=== PATIENT | female | born 1940 | race Hispanic/Latino ===

== ENCOUNTER 2023-07-27 16:35 | Inpatient (IN) | payer MEDICARE ==
[~2023-07-27] VITALS: Ht 154.9 cm; Wt 94.0 kg
[~2023-07-27 16:35] MED LIST: ALBU5SOL19 IH; APIX5TAB PO; ASPI-1005 PO; CETI-193 PO; FLUT110HFA IH; FLUT15.845 NS; METO-391 PO; OMEP20CA12 PO; POTA-200 PO; TORS20TA4 PO; [UNRECOGNIZED DRUG - CODE] PO
[2023-07-27 17:27] LABS: BASOPHILS # (AUTO) 0.04 K/uL (0.00-0.20); BASOPHILS % (AUTO) 0.5 % (0.0-5.0); EOSINOPHILS # (AUTO) 0.03 K/uL (0.00-0.70); EOSINOPHILS % (AUTO) 0.4 % (0.0-8.0); HEMATOCRIT 35.3 % (36-48); IMMATURE GRANULOCYTE ABSOLUTE 0.03 K/uL (0-1); LYMPHOCYTES # (AUTO) 1.1 K/uL (1.0-4.8); LYMPHOCYTES % (AUTO) 14.2 % (21.0-51.0); MEAN CORPUSCULAR HEMOGLOBIN 27.7 pg (27.0-33.0); MEAN CORPUSCULAR HGB CONC 31.4 g/dL (32.0-36.0); MONOCYTES # (AUTO) 0.9 K/uL (0.1-1.0); MONOCYTES % (AUTO) 11.7 % (3.0-13.0); NEUTROPHILS # (AUTO) 5.4 K/uL (1.8-7.7); NEUTROPHILS % (AUTO) 72.8 % (40.0-77.0); PLATELET COUNT (AUTO) 192 K/uL (130-400); RED BLOOD CELL COUNT(AUTO) 4.01 MIL/uL (4.00-5.50); RED CELL DISTRIBUTION WIDTH 14.1 % (11.0-15.5); WHITE BLOOD COUNT (AUTO) 7.4 K/uL (4.8-10.8)
[2023-07-27] MEDS: ASPIRIN 81MG CHEW TAB PO ONE (17:29)
[2023-07-27] MEDS: DILTIAZEM 25MG INJ IVP ONE ×2 (17:30→19:53)
[2023-07-27 17:37] LABS: CREATININE 1.2 mg/dL (0.5-1.0); POTASSIUM 3.4 mmol/L (3.5-5.1)
[2023-07-27 17:39] LABS: INR 1.03 (0.85-1.15); PROTHROMBIN TIME 12.1 SEC (9.6-11.6)
[2023-07-27 17:40] LABS: PARTIAL THROMBOPLASTIN TIME 33.9 SEC (26.3-35.5)
[2023-07-27 17:42] LABS: ALBUMIN 3.4 g/dL (3.5-5.0); BILIRUBIN,TOTAL 0.7 mg/dL (0.2-1.0); MAGNESIUM 1.8 mg/dL (1.80-2.40); TOTAL PROTEIN, SERUM 7.3 g/dL (6.0-8.3)
[2023-07-27 17:48] LABS: B-TYPE NATRIURETIC PEPTIDE 492 pg/mL (0-100)
[2023-07-27] MEDS: POTASSIUM BICARB/CIT AC 25 MEQ TABLET.EFF PO ONE (19:46)
[2023-07-27] MEDS: PANTOPRAZOLE 40 MG/VIAL IVP ONE (19:53)
[2023-07-27] MEDS ORDERED: METOPROLOL TARTRATE 25 MG TAB PO SCH (22:30)
[2023-07-27] MEDS: METOPROLOL TARTRATE 25 MG TAB PO SCH (23:01)
[2023-07-28] VITALS (8 sets, daily range): BP systolic 110–137; BP diastolic 58–83; PULSE 80–102; RESP 18–19; O2SAT 97–99
[2023-07-28] MEDS: ACETAMINOPHEN 325 MG TAB PO PRN (03:22)
[2023-07-28] MEDS ORDERED: ONDANSETRON 4MG INJ IVP PRN (03:30)
[2023-07-28] MEDS: MORPHINE 2 MG SYG IVP PRN (04:34)
[2023-07-28 05:49] LABS: BASOPHILS # (AUTO) 0.03 K/uL (0.00-0.20); BASOPHILS % (AUTO) 0.5 % (0.0-5.0); EOSINOPHILS # (AUTO) 0.09 K/uL (0.00-0.70); EOSINOPHILS % (AUTO) 1.4 % (0.0-8.0); HEMATOCRIT 30.2 % (36-48); IMMATURE GRANULOCYTE ABSOLUTE 0.02 K/uL (0-1); LYMPHOCYTES # (AUTO) 1.7 K/uL (1.0-4.8); LYMPHOCYTES % (AUTO) 26.5 % (21.0-51.0); MEAN CORPUSCULAR HEMOGLOBIN 27.4 pg (27.0-33.0); MEAN CORPUSCULAR HGB CONC 31.8 g/dL (32.0-36.0); MEAN CORPUSCULAR VOLUME 86.3 fL (79-99); MONOCYTES # (AUTO) 0.9 K/uL (0.1-1.0); MONOCYTES % (AUTO) 14.1 % (3.0-13.0); NEUTROPHILS # (AUTO) 3.6 K/uL (1.8-7.7); NEUTROPHILS % (AUTO) 57.2 % (40.0-77.0); PLATELET COUNT (AUTO) 161 K/uL (130-400); RED CELL DISTRIBUTION WIDTH 14.4 % (11.0-15.5); WHITE BLOOD COUNT (AUTO) 6.3 K/uL (4.8-10.8)
[2023-07-28 06:01] LABS: ALBUMIN 2.9 g/dL (3.5-5.0); BILIRUBIN,TOTAL 0.6 mg/dL (0.2-1.0); CREATININE 1.1 mg/dL (0.5-1.0); POTASSIUM 3.3 mmol/L (3.5-5.1); TOTAL PROTEIN, SERUM 6.5 g/dL (6.0-8.3)
[2023-07-28 06:33] LABS: B-TYPE NATRIURETIC PEPTIDE 382 pg/mL (0-100)
[2023-07-28] MEDS: POTASSIUM CHLORIDE 10% ELIXIR 20 MEQ/15 ML UDCUP PO PRN (06:33)
[2023-07-28] MEDS: TORSEMIDE 20 MG TAB PO SCH (09:14)
[2023-07-28] MEDS: FAMOTIDINE 20MG TAB PO SCH (09:14)
[2023-07-28] MEDS: APIXABAN 5 MG TABLET PO SCH (09:14)
[2023-07-28] MEDS: ASPIRIN 81 MG EC TAB PO SCH (09:14)
[2023-07-28] MEDS ORDERED: PROP15DR OU (12:12)
[2023-07-28] MEDS ORDERED: DILT120T PO (12:12)
[2023-07-28] MEDS ORDERED: ERGO500093 PO (12:12)
[2023-07-28] MEDS: FLUTICASONE PROPIONATE 110 MCG IH SCH (13:00)
[2023-07-28] MEDS: KCL 20 MEQ ERTAB PO PRN (15:28)
[2023-07-28] MEDS: DILTIAZEM 60MG TAB PO SCH (20:38)
[2023-07-28] MEDS ORDERED: DILTIAZEM 60MG TAB PO SCH (21:00)
[2023-07-29] VITALS (9 sets, daily range): BP systolic 125–155; BP diastolic 59–93; PULSE 88–118; RESP 16–19; O2SAT 97–98
[2023-07-29] MEDS: REGADENOSON 0.4 MG/5 ML PF SYG IVP SCH (06:30)
[2023-07-29] MEDS ORDERED: ATOR20TA65 PO (11:13)
[2023-07-29] MEDS: ACETAMINOPHEN 325 MG TAB PO PRN (12:22)
[2023-07-29] MEDS: TORSEMIDE 20 MG TAB PO ONE (14:31)
[2023-07-29] MEDS: DILTIAZEM 120MG SR CAP PO SCH (20:04)
[2023-07-29] MEDS: ATORVASTATIN 20 MG TABLET PO SCH (20:04)
[2023-07-30 03:45] LABS: HEMATOCRIT 34.6 % (36-48); MEAN CORPUSCULAR HGB CONC 31.8 g/dL (32.0-36.0); RED BLOOD CELL COUNT(AUTO) 3.93 MIL/uL (4.00-5.50); RED CELL DISTRIBUTION WIDTH 14.1 % (11.0-15.5); WHITE BLOOD COUNT (AUTO) 6.6 K/uL (4.8-10.8)
[2023-07-30 04:15] LABS: MAGNESIUM 1.8 mg/dL (1.80-2.40); POTASSIUM 3.4 mmol/L (3.5-5.1)
[2023-07-30 04:25] VITALS: BP 129/79; PULSE 121; RESP 18
[2023-07-30 08:00] VITALS: BP 141/70; PULSE 121; RESP 18; O2SAT 98
[2023-07-30] MEDS: MAGNESIUM 2GM PREMIX 50ML 50 ML IV PRN (08:17)
[2023-07-30 12:04] VITALS: BP 132/85; PULSE 112; RESP 20
[2023-07-30 16:59] VITALS: BP 124/62; PULSE 83; RESP 18
[2023-07-30] MEDS: DILTIAZEM 180MG SR CAP PO SCH (20:17)
[2023-07-30 20:26] VITALS: O2SAT 93
[2023-07-30 20:41] VITALS: BP 144/61; PULSE 93; RESP 18
[2023-07-31] VITALS (7 sets, daily range): BP systolic 120–157; BP diastolic 62–92; PULSE 69–96; RESP 17–20; O2SAT 98–99
[2023-07-31] MEDS: ENOXAPARIN SODIUM 100 MG/1 ML SQ SCH (03:11)
[2023-07-31 04:07] LABS: BASOPHILS # (AUTO) 0.04 K/uL (0.00-0.20); BASOPHILS % (AUTO) 0.7 % (0.0-5.0); EOSINOPHILS # (AUTO) 0.24 K/uL (0.00-0.70); EOSINOPHILS % (AUTO) 4.4 % (0.0-8.0); HEMATOCRIT 32.2 % (36-48); IMMATURE GRANULOCYTE ABSOLUTE 0.03 K/uL (0-1); LYMPHOCYTES # (AUTO) 1.5 K/uL (1.0-4.8); LYMPHOCYTES % (AUTO) 28.3 % (21.0-51.0); MEAN CORPUSCULAR HEMOGLOBIN 27.3 pg (27.0-33.0); MEAN CORPUSCULAR HGB CONC 30.7 g/dL (32.0-36.0); MONOCYTES # (AUTO) 0.7 K/uL (0.1-1.0); MONOCYTES % (AUTO) 11.9 % (3.0-13.0); NEUTROPHILS % (AUTO) 54.1 % (40.0-77.0); PLATELET COUNT (AUTO) 191 K/uL (130-400); RED BLOOD CELL COUNT(AUTO) 3.62 MIL/uL (4.00-5.50); RED CELL DISTRIBUTION WIDTH 14.3 % (11.0-15.5); WHITE BLOOD COUNT (AUTO) 5.5 K/uL (4.8-10.8)
[2023-07-31 04:33] LABS: ALBUMIN 2.9 g/dL (3.5-5.0); BILIRUBIN,TOTAL 0.5 mg/dL (0.2-1.0); CREATININE 1.1 mg/dL (0.5-1.0); MAGNESIUM 2.2 mg/dL (1.80-2.40); POTASSIUM 3.8 mmol/L (3.5-5.1); TOTAL PROTEIN, SERUM 6.6 g/dL (6.0-8.3)
[2023-07-31 04:43] LABS: PLATELET MORPHOLOGY LARGE PLTS PRESENT
[2023-08-01] VITALS (9 sets, daily range): BP systolic 117–154; BP diastolic 53–103; PULSE 72–114; RESP 18–20; O2SAT 96–97
[2023-08-02] VITALS (17 sets, daily range): BP systolic 120–138; BP diastolic 52–94; PULSE 73–105; RESP 17–20; O2SAT 96
[2023-08-02 03:47] LABS: BASOPHILS # (AUTO) 0.05 K/uL (0.00-0.20); BASOPHILS % (AUTO) 0.9 % (0.0-5.0); EOSINOPHILS # (AUTO) 0.15 K/uL (0.00-0.70); EOSINOPHILS % (AUTO) 2.7 % (0.0-8.0); HEMATOCRIT 31.7 % (36-48); IMMATURE GRANULOCYTE ABSOLUTE 0.02 K/uL (0-1); LYMPHOCYTES # (AUTO) 1.5 K/uL (1.0-4.8); LYMPHOCYTES % (AUTO) 26.7 % (21.0-51.0); MEAN CORPUSCULAR HEMOGLOBIN 27.9 pg (27.0-33.0); MEAN CORPUSCULAR HGB CONC 31.5 g/dL (32.0-36.0); MEAN CORPUSCULAR VOLUME 88.3 fL (79-99); MONOCYTES # (AUTO) 0.7 K/uL (0.1-1.0); MONOCYTES % (AUTO) 12.4 % (3.0-13.0); NEUTROPHILS # (AUTO) 3.2 K/uL (1.8-7.7); NEUTROPHILS % (AUTO) 56.9 % (40.0-77.0); PLATELET COUNT (AUTO) 187 K/uL (130-400); RED BLOOD CELL COUNT(AUTO) 3.59 MIL/uL (4.00-5.50); WHITE BLOOD COUNT (AUTO) 5.6 K/uL (4.8-10.8)
[2023-08-02 03:55] LABS: CREATININE 1.1 mg/dL (0.5-1.0); MAGNESIUM 1.3 mg/dL (1.80-2.40); PHOSPHORUS 3.7 mg/dL (2.5-4.9); POTASSIUM 3.4 mmol/L (3.5-5.1)
[2023-08-02 03:56] LABS: INR 0.96 (0.85-1.15); PROTHROMBIN TIME 11.4 SEC (9.6-11.6)
[2023-08-02 03:57] LABS: PARTIAL THROMBOPLASTIN TIME 28.5 SEC (26.3-35.5)
[2023-08-02] MEDS: POTASSIUM CHLORIDE 20MEQ/100ML 100 ML IV PRN (05:46)
[2023-08-02] MEDS ORDERED: LIDOCAINE HCL 400MG/20ML VIAL ONE (14:17)
[2023-08-02] MEDS ORDERED: NICARDIPINE 25MG INJ IV ONE (14:17)
[2023-08-02] MEDS ORDERED: HEPARIN 10,000 UNIT/10ML (1,000 UNIT/ML) VIAL ONE (14:17)
[2023-08-02] MEDS ORDERED: NITROGLYCERIN 50MG VIAL ONE (14:18)
[2023-08-02] MEDS ORDERED: MAGNESIUM 2GM PREMIX 50ML 50 ML IV SCH (15:30)
[2023-08-02] MEDS: KCL 20 MEQ ERTAB PO ONE (15:30)
[2023-08-02] MEDS: POTASSIUM CHLORIDE 20MEQ/100ML 100 ML IV ONE (15:30)
[2023-08-02] MEDS ORDERED: MIDAZOLAM HCL 1 MG/ML 2ML VIAL ONE (16:40)
[2023-08-02] MEDS ORDERED: FENTANYL CITRATE PF 50 MCG/1 ML 2ML VIAL ONE (16:40)
[2023-08-02] MEDS ORDERED: DEXTROSE 50%-WATER 50 ML DISP.SYRIN IV PRN (17:30)
[2023-08-02] MEDS ORDERED: GLUCAGON 1MG KIT 1 MG ML IM PRN (17:30)
[2023-08-02] MEDS: 0.9%NACL 1000ML 1,000 ML IV SCH (17:30)
[2023-08-02] MEDS: APIXABAN 5 MG TABLET PO SCH (21:32)
[2023-08-03 03:58] VITALS: BP 128/62; PULSE 109; RESP 18
[2023-08-03 05:13] LABS: BASOPHILS # (AUTO) 0.05 K/uL (0.00-0.20); BASOPHILS % (AUTO) 0.9 % (0.0-5.0); EOSINOPHILS # (AUTO) 0.13 K/uL (0.00-0.70); EOSINOPHILS % (AUTO) 2.4 % (0.0-8.0); HEMATOCRIT 33.3 % (36-48); IMMATURE GRANULOCYTE ABSOLUTE 0.02 K/uL (0-1); LYMPHOCYTES # (AUTO) 1.5 K/uL (1.0-4.8); LYMPHOCYTES % (AUTO) 26.9 % (21.0-51.0); MEAN CORPUSCULAR HEMOGLOBIN 27.1 pg (27.0-33.0); MEAN CORPUSCULAR HGB CONC 31.8 g/dL (32.0-36.0); MEAN CORPUSCULAR VOLUME 85.2 fL (79-99); MONOCYTES # (AUTO) 0.5 K/uL (0.1-1.0); MONOCYTES % (AUTO) 9.6 % (3.0-13.0); NEUTROPHILS # (AUTO) 3.2 K/uL (1.8-7.7); NEUTROPHILS % (AUTO) 59.8 % (40.0-77.0); PLATELET COUNT (AUTO) 216 K/uL (130-400); RED BLOOD CELL COUNT(AUTO) 3.91 MIL/uL (4.00-5.50); RED CELL DISTRIBUTION WIDTH 14.2 % (11.0-15.5); WHITE BLOOD COUNT (AUTO) 5.4 K/uL (4.8-10.8)
[2023-08-03 05:33] LABS: ALBUMIN 3.2 g/dL (3.5-5.0); BILIRUBIN,TOTAL 0.7 mg/dL (0.2-1.0); CREATININE 0.9 mg/dL (0.5-1.0); MAGNESIUM 2.2 mg/dL (1.80-2.40); POTASSIUM 3.5 mmol/L (3.5-5.1); TOTAL PROTEIN, SERUM 7.2 g/dL (6.0-8.3)
[2023-08-03 08:00] VITALS: BP 127/64; PULSE 79; RESP 18
[2023-08-03] MEDS ORDERED: DILT-37 PO (09:52)
[2023-08-03] MEDS ORDERED: AEC81 PO (09:53)
[2023-08-04] MEDS ORDERED: FAMOTIDINE 20MG TAB PO SCH (10:00)
== END 2023-08-03 12:12 | disposition home or self-care (01) | DRG 286 ==
LOC: EDH 16:35 → OBSVTOIN 20:10 → EDHIP 20:10 → 4AH 23:44
PROVIDERS: ADMIT Hospitalist; ATTEND Hospitalist
PROC: 4A02XM4 Measurement of Cardiac Total Activity, External Approach (ICD-10-PCS; 2023-07-29)
PROC: 3E073KZ Introduction of Other Diagnostic Substance into Coronary Artery, Percutaneous Approach (ICD-10-PCS; 2023-07-29)
PROC: 4A023N7 Measurement of Cardiac Sampling and Pressure, Left Heart, Percutaneous Approach (ICD-10-PCS; principal; 2023-08-02)
PROC: B2111ZZ Fluoroscopy of Multiple Coronary Arteries using Low Osmolar Contrast (ICD-10-PCS; 2023-08-02)
PROC: B41F1ZZ Fluoroscopy of Right Lower Extremity Arteries using Low Osmolar Contrast (ICD-10-PCS; 2023-08-02)
DX: I13.0 Hypertensive heart and chronic kidney disease with heart failure and stage 1 through stage 4 chronic kidney disease, or unspecified chronic kidney disease (principal); I50.33 Acute on chronic diastolic (congestive) heart failure; I48.19 Other persistent atrial fibrillation; D68.69 Other thrombophilia; Z68.41 Body mass index [BMI] 40.0-44.9, adult; E44.1 Mild protein-calorie malnutrition; I25.10 Atherosclerotic heart disease of native coronary artery without angina pectoris; E66.01 Morbid (severe) obesity due to excess calories; D50.9 Iron deficiency anemia, unspecified; E11.22 Type 2 diabetes mellitus with diabetic chronic kidney disease; E11.65 Type 2 diabetes mellitus with hyperglycemia; E78.5 Hyperlipidemia, unspecified; E83.42 Hypomagnesemia; E87.6 Hypokalemia; I08.1 Rheumatic disorders of both mitral and tricuspid valves; Z96.652 Presence of left artificial knee joint; K21.9 Gastro-esophageal reflux disease without esophagitis; N18.30 Chronic kidney disease, stage 3 unspecified; Z79.82 Long term (current) use of aspirin; Z79.899 Other long term (current) drug therapy; Z79.01 Long term (current) use of anticoagulants; Z90.710 Acquired absence of both cervix and uterus; Z88.5 Allergy status to narcotic agent; Z88.2 Allergy status to sulfonamides; Z91.199 Patient's noncompliance with other medical treatment and regimen due to unspecified reason
CPT/HCPCS: 36415; 71045; 78452; 80048; 80053; 82550; 83735; 83880; 84100; 84132; 84484; 85025; 85027; 85610; 85730; 93005; 93017; 93306; 93458; 96374; 99156; 99157; A9500; C1760; C1894; C9113; G0378; J1644; J1650; J2250; J2270; J2785; J3010; J3475; J3480; J3490; Q9965